=== PATIENT | male | born 1980 | race Caucasian/White ===

== ENCOUNTER 2017-01-28 18:04 | Emergency (ER) | payer SELFPAY ==
[~2017-01-28] VITALS: Ht 172.7 cm; Wt 142.0 kg
--- OUTSIDE RECORDS SUMMARY | 2017-01-28 18:10 | External Medical Summary Rpt | CCD ---
Author Author [employer] Organization [employer] Address Unknown Phone Unavailable Purpose Continuity of Care Document - through 2016
--- OUTSIDE RECORDS SUMMARY | 2017-01-28 18:10 | External Medical Summary Rpt | CCD ---
Demographics Preferred Language Marshallese Marital Status Unknown Hindu Affiliation Unknown Race Unknown Ethnic Group Unknown Author Author , MARYELLEN BOJORQUEZ Address Unknown Phone Immunization No patient found.
--- OUTSIDE RECORDS SUMMARY | 2017-01-28 18:10 | External Medical Summary Rpt | CCD ---
Demographics Preferred Language Latvian Marital Status Unknown Yarsani Affiliation Unknown Race Unknown Ethnic Group Unknown Author Author MARYELLEN Address Unknown Phone [email or web address] Purpose Continuity of Care Document - through 2016
--- OUTSIDE RECORDS SUMMARY | 2017-01-28 18:10 | External Medical Summary Rpt | CCD ---
Demographics Preferred Language Qatari Marital Status Unknown Presybeterian Affiliation Unknown Race Unknown Ethnic Group Unknown Author Author , MARYELLEN BOJORQUEZ Address Unknown Phone Immunization No patient found.
--- OUTSIDE RECORDS SUMMARY | 2017-01-28 18:10 | External Medical Summary Rpt ---
Demographics Preferred Language Unknown Marital Status Unknown Taoism Affiliation Unknown Race Unknown Ethnic Group Unknown Author Author MARYELLEN Colunga, MARYELLEN [employer] Organization [employer] Address Unknown Phone Unavailable
--- OUTSIDE RECORDS SUMMARY | 2017-01-28 18:10 | External Medical Summary Rpt ---
Demographics Preferred Language Unknown Marital Status Unknown Caodaism Affiliation Unknown Race Unknown Ethnic Group Unknown Author Author MARYELLEN Colunga, MARYELELN [employer] Organization [employer] Address Unknown Phone Unavailable
--- OUTSIDE RECORDS SUMMARY | 2017-01-28 18:10 | External Medical Summary Rpt | CCD ---
Demographics Preferred Language Bulgarian Marital Status Unknown Scientology Affiliation Unknown Race Unknown Ethnic Group Unknown Author Author MARYELLEN Address Unknown Phone [email or web address] Purpose Continuity of Care Document - through 2016
[2017-01-28] MEDS ORDERED: ZOFRAN ODT4 MG PO (18:36)
--- NOTE | 2017-01-28 18:36 | Urgent Treatment Center Report ---
History of Present Issue Date/Time Seen by Provider 01/28/17 1830 Visit Reason Pt arrived:Wheelchair Presenting Problem:PT HAS BEEN VOMITING X1 HOUR Location if Accident: Onset of symptoms date/time:/ or onset unknown for:MEDICAL HX UNKNOWN Have you (or family members/close friends) recently traveled outside the [place]? N If Yes, where/when: Have you had exposure to infectious disease within the past month? TB? Other? Specify: Mother state that patient began having upset stomach and started vomiting States that he still feels sick to his stomach however no vomiting since arrival State that he would like something for his nausea so he doesn't get dehydrated ALLERGIES Coded Allergies: No Known Allergies (01/28/17) History Medical History General CAD? No Angina: No NV: No Hypertension? No Hyperlipidemia? No CHF? No DVT? No PE? No COPD? No Asthma? No Anemia? No GERD? No Gastric ulcers? No GI Bleed? No Hernia? No Thyroid Problems? No Hypothyroidism? No CVA? No Seizures? No Diabetes? No Renal Insuffiency? No UTI? No Stones? No BPH? No GB Disease: No Nephritic Syndrome? No Asplenia? No Hepatitis? No Sickle Cell Disease? No Arthritis? No Migraines? No Cataracts? No Glaucoma? No MRSA? No HIV? No TB? No Anxiety? No Depression? No Cancer? No Site: N Immunization HX DT/Tetanus 5-10 Years Ago Surgical Hx Previous Surgery?N Social History Smoking Hx Smoker: Never Smoker Tobacco: No Alcohol Alcohol: No Review of Systems All Other Systems Reviewed and Negative Gastrointestinal denies abdominal pain, denies diarrhea, nausea, vomiting Physical Exam Vital Signs Vital Signs Date Time Temp Pulse Resp B/P Pulse O2 O2 Flow FiO2 Ox Delivery Rate 01/28 1846 98.7 60 20 143/84 100 01/28 1812 98.7 60 20 143/84 100 General Appearance normal appearance, WD/WN, no apparent distress Respiratory Status Yes: trachea midline, chest symmetrical, non tender chest. No: respiratory distress. Lung Sounds bilateral: normal breath sounds, lungs clear. Cardiovascular normal exam, regular rate/rhythm, no peripheral edema, no gallop Gastrointestinal normal bowel sounds, normal exam, no guarding, no rebound Neurologic alert, normal exam, oriented x 3 Medical Decision Making LABS/Meds/Orders Pt receiving controlled substance in ED? No Results/Orders Current Medication Orders Sig/Bear Start time Last Medication Dose Route Stop Time Status Admin Ondansetron HCl 4 MG ONCE ONE 01/28 1845 DC 01/28 SL 01/28 Ondansetron HCl 0 .STK-MED ONE 01/29 1840 DC .ROUTE Progress [facility] Progress Notes Comment Patient states that he feels much better after the Zofran Departure Departure Time of Disposition 1847 Disposition DC Home or Self Care(routine) Clinical Impression Primary Impression: Gastroenteritis Condition STABLE Patient Instructions Viral Gastroenteritis Additional Instructions try very small amounts of water or suck on ice chips. diarrhea. children and infants should use products formulated for children, like oral rehydration solutions. Never give aspirin to children or teenagers with a viral illness. This can cause Fer syndrome, a potentially life-threatening condition. Discharge Counseling Counseled pt/family regarding diagnosis, medications/RX, home care, follow up needs Prescriptions Current Visit Scripts Ondansetron (Zofran 4MG Odt) 4 MG PO Q6HP PRN NAUSEA AND VOMITING #20 TAB at 1848
[2017-01-28 18:46] VITALS: BP 143/84
== END 2017-01-28 18:47 | disposition home or self-care (01) ==
LOC: UTC 18:04
DX: A08.4 Viral intestinal infection, unspecified (principal)